=== PATIENT | male | born 1995 | race Caucasian/White ===

== ENCOUNTER 2017-05-18 18:56 | Emergency (ER) | payer OTHER ==
[2017-05-18 19:01] VITALS: BP 118/73; PULSE 102; RESP 18; TEMP 97.9; O2SAT 95
--- NOTE | 2017-05-18 19:12 | EDPHY ---
H & P Smoking Status: Never smoked Time Seen by Provider: 05/18/17 19:02 HPI/ROS: CHIEF COMPLAINT: Left thumb injury HISTORY OF PRESENT ILLNESS: 22-year-old male presents to the emergency department by private vehicle with injury to his left thumb. The patient was skiing and fell and thinks that he jammed his left thumb. Complains of isolated pain to the left thumb. He is right-hand dominant. He has pain in his left thumb especially with range of motion. Denies numbness or tingling in his fingers. Denies injury to the other fingers. He did not hit his head or lose consciousness. Denies neck or back pain. Denies chest pain or difficulty breathing. Denies abdominal pain, vomiting, diarrhea, injury to his lower extremities or his right upper extremity. His tetanus shot is current. REVIEW OF SYSTEMS: Constitutional: No fever, no chills. Eyes: No double or blurry vision. ENT: No sore throat. Respiratory: No cough, no shortness of breath. Cardiac: No chest pain. Gastrointestinal: No abdominal pain, vomiting or diarrhea. Genitourinary: No dysuria. Musculoskeletal: No neck or back pain. Skin: No rashes. Neurological: No headache. (Adilene Mcgill) Past Medical/Surgical History: Negative (Adilene Mcgill) Social History: Single (Adilene Mcgill) Physical Exam: General Appearance: Alert, no distress. No visible signs of trauma to his head. Mentating normally and answering questions appropriately. Eyes: Pupils equal and round. Extraocular motions are all intact. ENT: Mouth: Mucous membranes moist. No dental injury or malocclusion. Respiratory: No wheezing, rhonchi, or rales, lungs are clear to auscultation. Cardiovascular: Regular rate and rhythm. Gastrointestinal: Abdomen is soft and nontender, no masses, no rebound or guarding, bowel sounds normal. Neurological: Alert and oriented x 3, cranial nerves II through XII grossly intact Skin: There is blood noted the very distal tip of the thumb near where the nail meets with the distal pad of the finger. There is no evidence of subungual hematoma. Warm and dry, no rashes. Musculoskeletal: Nontender to palpate along the cervical, thoracic or lumbar spine. Neck is supple. Extremities: Left thumb is swollen. There is ecchymosis noted over the PIP on the palmar aspect of the left thumb. Reproducible pain with palpation of the PIP and the MCP joint of the left thumb. No rotational deformities noted. Limited flexion at the PIP joint and limited abduction secondary to pain. The other fingers do not appear injured and are nontender to palpate. Normal sensation to light touch with normal 2 point discrimination. Strong radial pulse at the left wrist. Psychiatric: Patient is oriented X 3, there is no agitation. (Adilene Mcgill) Constitutional: Initial Vital Signs Temperature (C) 36.6 C 05/18/17 18:58 Heart Rate 102 H 05/18/17 18:58 Respiratory Rate 18 05/18/17 18:58 Blood Pressure 118/73 05/18/17 18:58 O2 Sat (%) 95 05/18/17 18:58 O2 Delivery Mode Room Air Allergies/Adverse Reactions: No Known Allergies Allergy (Unverified 05/18/17 18:58) Home Medications: Medication Instructions Recorded Albuterol 05/18/17 Medical Decision Making - Diagnostics Imaging: I viewed and interpreted images myself Procedures: The patient was placed in Alumafoam thumb splint and Ortho Glass thumb spica splint and examined post application in good placement with normal [employer]. (Adilene Mcgill) ED Course/Re-evaluation: 22-year-old male presents to the emergency department with left thumb injury. X- rays are pending. X-rays of the left thumb reveal comminuted fracture to the base of the distal phalanx of the left thumb which is intra-articular. The patient will be placed in Alumafoam splint and Ortho Glass thumb spica splint and given orthopedic hand surgical referral. He understands that he could possibly require surgical repair. (Adilene Mcgill) Differential Diagnosis: Including but not limited to fracture, dislocation, contusion, sprain (Adilene Mcgill) Departure - Departure Disposition: Home, Routine, Self-Care Clinical Impression: Fracture of thumb, left, closed Condition: Good Instructions: Thumb Fracture (ED) Additional Instructions: Keep splint on and keep it dry. Ice and elevate to help reduce swelling. Ibuprofen 600 mg every 8 hr as needed for pain. Referrals: Elmira Jones MD [Medical Doctor] - 2-3 days without fail (Orthopedic hand surgeon on-call)
== END 2017-05-18 20:23 | disposition home or self-care (01) ==
DX: S62.522A Displaced fracture of distal phalanx of left thumb, initial encounter for closed fracture (principal); V00.321A Fall from snow-skis, initial encounter; Y99.8 Other external cause status; Y93.23 Activity, snow (alpine) (downhill) skiing, snowboarding, sledding, tobogganing and snow tubing

== ENCOUNTER 2018-07-19 09:18 | Emergency (ER) | payer OTHER ==
[2018-07-19 09:28] VITALS: BP 117/80
--- NOTE | 2018-07-19 09:35 | EDPHY ---
H & P Stated Complaint: sore throat x three days Time Seen by Provider: 07/19/18 09:30 HPI/ROS: HPI: This is a 23-year-old male who presents with Chief Complaint: Sore throat x3 days Location: Throat Quality: Pain, white spots Duration: 3 days Signs and Symptoms: +9 fever, no nausea, no vomiting, no diarrhea, no urinary symptoms, no chest pain, no shortness of breath, no wheezing, no cough, + sore throat, no neck stiffness, no joint pain, no swollen glands, no ear pain, no rash Timing: Acute Severity: Moderate Context: Patient is student at [employer] presents with 3 day history of sore throat accompanied by white spots on the back of his tonsils , swollen glands, no cough, fever with a T-max of a 101 F taken orally. Patient denies any neck stiffness, vomiting, nausea, headache, difficulty swallowing. He does report discomfort with eating and swallowing food. Taking ibuprofen for fever control and pain relief. Denies any drooling, difficulty talking. Patient reports that he has no abdominal pain, no fatigue, no generalized weakness. Drinking fluids without any difficulty. Modifying Factors: Ibuprofen taken 2 hr prior to arrival. Comment: ROS: A comprehensive 10 system review of systems is otherwise negative aside from elements mentioned in the history of present illness. MEDICAL/SURGICAL/SOCIAL HISTORY: Medical history: Generally healthy. Does not take any regular medications. Surgical history: Denies Social history: Marijuana user. Nontobacco user. Originally from [place]. Family history noncontributory. CONSTITUTIONAL: Well-developed, well-nourished, young adult white male, polite and cooperative, awake and alert, no obvious distress HEENT: Atraumatic and normocephalic, PERRL, EOMI. Nares patent; no rhinorrhea; no nasal mucosal edema. Tympanic membranes clear. Oropharynx clear, tonsils 2 + with moderate erythema and white exudate; uvula midline; and moist pink mucosa. Airway patent. + spotty anterior cervical lymphadenopathy. No meningismus. Cardiovascular: Normal S1/S2, regular rate, regular rhythm, without murmur rub or gallop. PULMONARY/CHEST: Symmetrical and nontender. Clear to auscultation bilaterally. Good air movement. No accessory muscle usage. ABDOMEN: Soft, nondistended, nontender, no rebound, no guarding, no peritoneal signs, no masses or organomegaly. No CVAT. EXTREMITIES: 2/2 pulses, strength 5/5, no deformities, no clubbing, no cyanosis or edema. NEUROLOGICAL: no focal neuro deficits. GCS 15. Speech clear. SKIN: Warm and dry, no erythema. no rash. Good capillary refill. Source: Patient Exam Limitations: No limitations - Personal History Tetanus Vaccine Date: < 10 years - Medical/Surgical History Hx Asthma: Yes Hx Chronic Respiratory Disease: No Hx Diabetes: No Hx Cardiac Disease: No Hx Renal Disease: No Hx Cirrhosis: No Hx Alcoholism: No Hx HIV/AIDS: No Hx Splenectomy or Spleen Trauma: No Other PMH: asthma. concussions. left thumb sx - Social History Smoking Status: Never smoked Constitutional: Initial Vital Signs Temperature (C) 36.6 C 07/19/18 09:25 Heart Rate 100 07/19/18 09:25 Respiratory Rate 15 07/19/18 09:25 Blood Pressure 117/80 07/19/18 09:25 O2 Sat (%) 96 07/19/18 09:25 O2 Delivery Mode Room Air Allergies/Adverse Reactions: peanut Allergy (Verified 07/19/18 09:28) shellfish derived Allergy (Verified 07/19/18 09:29) Home Medications: Medication Instructions Recorded Albuterol 05/18/17 Cefuroxime Axetil [Ceftin (*)] 250 mg PO BID 10 Days tab 07/19/18 Dexamethasone [Decadron 2 MG (*)] 10 mg PO ONCE #5 tab 07/19/18 Medical Decision Making ED Course/Re-evaluation: Vital signs reviewed and stable upon arrival. No systemic signs. Rapid Strep negative. Sent for throat culture. Modified Centor score=4; will prophylactically treat for strep pharyngitis with antibiotics. 1. Age Range: 15-44 years +1 3. Tender/swollen anterior cervical lymph nodes:+1 4. Temp greater than 30 degree C: +1 5. Cough: Absent=1 No signs of meningitis, abdominal pain, dehydration, tonsillar abscess, airway compromise Given a prescription for Ceftin times 10 days and Decadron 10 mg x1 This patient was seen under the supervision of my secondary supervising physician. I evaluated care for this patient with attending. Differential Diagnosis: Differential diagnosis includes but is not limited to infectious mononucleosis, tonsillar abscess, strep pharyngitis, pharyngitis, upper respiratory infection, sinusitis, allergic rhinitis - Data Points Laboratory Results: 07/19/18 07/19/18 Unknown 09:34 Group A Strep Screen NEGATIVE (NEGATIVE) Group A Strep DNA Pending Departure - Departure Disposition: Home, Routine, Self-Care Clinical Impression: Strep tonsillitis Condition: Good Instructions: Strep Throat (ED) Additional Instructions: Rest as much as possible until you are feeling better. Consume a minimum of 8-10 glasses of water or electrolyte fluid replacement drinks that include Gatorade, Powerade, Pedialyte. Eat a bland diet for the next 48 hours and then slowly advance as tolerated. Take antibiotic as directed. Do not skip a dose. Complete entire 10 day course. Take Tylenol 650 mg every 4 hours and/or Ibuprofen 600 mg every 8 hours with food as needed for pain. Return to the ER immediately if you cannot swallow, have drooling, fevers, neck stiffness, cannot open your jaw, or any other symptoms that concern you. Referrals: GENEVIEVE REYES [Other] - As per Instructions Stand Alone Forms: School Excuse Prescriptions: Cefuroxime Axetil [Ceftin (*)] 250 mg PO BID 10 Days tab Dexamethasone [Decadron 2 MG (*)] 10 mg PO ONCE #5 tab
== END 2018-07-19 09:40 | disposition home or self-care (01) ==
DX: J03.00 Acute streptococcal tonsillitis, unspecified (principal)

== ENCOUNTER 2018-08-02 17:40 | Emergency (ER) | payer OTHER ==
--- NOTE | 2018-08-02 17:48 | EDPHY ---
H & P Time Seen by Provider: 08/02/18 17:48 - Personal History Tetanus Vaccine Date: < 10 years - Medical/Surgical History Hx Asthma: Yes Hx Chronic Respiratory Disease: No Hx Diabetes: No Hx Cardiac Disease: No Hx Renal Disease: No Hx Cirrhosis: No Hx Alcoholism: No Hx HIV/AIDS: No Hx Splenectomy or Spleen Trauma: No Other PMH: asthma. concussions. left thumb sx - Social History Smoking Status: Never smoked Constitutional: Initial Vital Signs Temperature (C) 36.8 C 08/02/18 17:47 Heart Rate 107 H 08/02/18 17:47 Respiratory Rate 16 08/02/18 17:47 Blood Pressure 135/85 H 08/02/18 17:47 O2 Sat (%) 96 08/02/18 17:47 O2 Delivery Mode Room Air Allergies/Adverse Reactions: peanut Allergy (Verified 07/19/18 09:28) shellfish derived Allergy (Verified 07/19/18 09:29) Home Medications: Medication Instructions Recorded Albuterol 05/18/17 Cephalexin [Keflex (RX)] 500 mg PO TID #30 cap 08/02/18 Medical Decision Making ED Course/Re-evaluation: CHIEF COMPLAINT: Sore throat, body aches HISTORY OF PRESENT ILLNESS: The patient is a 23 y/o male who was recently diagnosed with strep throat complaining of a worsening sore throat, body aches, and a fever today. The patient was diagnosed with strep 2 weeks ago and placed on Ceftin. He took the full dose of antibiotics and his symptoms improved. Starting , yesterday , he developed a sore throat again. No headache, lightheadedness, chest pain, heart palpitations, shortness of breath, cough, abdominal pain, urinary or bowel complaints, numbness, paresthesias. REVIEW OF SYSTEMS: A comprehensive 10 system review of systems is otherwise negative aside from elements mentioned in the history of present illness and medical decision making. PHYSICAL EXAM: HR, BP, O2 Sat, RR. Temp noted General Appearance: Alert, well hydrated, appropriate, and non-toxic appearing. Head: Atraumatic without scalp tenderness or obvious injury Eyes: Pupils equal, round, reactive to light and accommodation, EOMI, no trauma , no injection. Ears: Clear bilaterally, no perforation, normal landmarks Nose: Atraumatic, no rhinorrhea, clear. Throat: Bilateral tonsillar exudates with oropharyngeal erythema. No lesions and mucus membranes moist. Neck: Submandibular lymphadenopathy. Supple, 2+ carotid upstroke, nontender. Respiratory: No retractions, no distress, no wheezes, and no accessory muscle use. Lungs are clear to auscultation bilaterally. Cardiovascular: Regular rate and rhythm, no murmurs, rubs, or gallops. Bilateral carotid, radial, dorsalis pedis, and posterior tibial pulses intact. Good capillary refill all extremities. Gastrointestinal: Abdomen is soft, nontender, non-distended, no masses, no rebound, no guarding, no peritoneal signs. Musculoskeletal: Normal active ROM of all extremities, atraumatic. Neurological: Alert, appropriate, and interactive. The patient has normal DTRs and non-focal cranial nerves, motor, sensory, and cerebellar exam. Skin: No rashes, good turgor, no nodules on palpation. Past medical history: Asthma, concussions Past surgical history: Left thumb surgery Family history: Denies Social history: Student at , single, lives in [place] DIAGNOSTICS/PROCEDURES/CRITICAL CARE TIME: Not indicated. DIFFERENTIAL DIAGNOSIS: The differential diagnosis for the patient's sore throat and fever included but was not limited to pharyngitis, tonsillar abscess, pneumonia, urinary tract infection, viral syndrome, meningitis, and sepsis. MEDICAL DECISION MAKING: The patient is a 23 y/o male who was recently diagnosed with strep throat presenting with a worsening sore throat, body aches, and a fever today. The patient was diagnosed with strep 2 weeks ago and placed on Ceftin, which he took as prescribed. On exam she has bilateral tonsillar exudates with oropharyngeal erythema. He also has bilateral submandibular lymphadenopathy. 6mg PO Decadron and 500mg PO Keflex administered for patient's pharyngitis. Patient will also be given a course of Keflex. Return precautions provided; patient is comfortable with this plan. - Data Points Medications Given: Discontinued Medications Cephalexin HCl (Keflex) 500 mg PO EDNOW ONE PRN Reason: Protocol Stop: 08/02/18 17:55 Last Admin: 08/02/18 18:06 Dose: 500 mg Dexamethasone (Decadron Injection) 6 mg PO EDNOW ONE Stop: 08/02/18 17:55 Last Admin: 08/02/18 18:08 Dose: 6 mg Departure - Departure Disposition: Home, Routine, Self-Care Clinical Impression: Tonsillar exudate Pharyngitis Qualifiers: Pharyngitis/tonsillitis etiology: other specified organisms Qualified Code(s): J02.8 - Acute pharyngitis due to other specified organisms Condition: Good Instructions: Pharyngitis (ED) Additional Instructions: 1. Take Keflex as prescribed. 2. Follow up with ENT within the next week. 3. Follow-up with your primary doctor within 72 hours. 4. Return to the Emergency Department for fever, chest pain, shortness of breath , increasing pain or other worsening of condition. Referrals: [facility] ,. [Clinic] - As per Instructions Darren Lee MD [Medical Doctor] - As per Instructions Prescriptions: Cephalexin [Keflex (RX)] 500 mg PO TID #30 cap Report Scribed for: Enrique Headley Report Scribed by: Sadaf Bell Date of Report: 08/02/18 Time of Report: 18:43
[2018-08-02 17:50] VITALS: BP 135/85
[2018-08-02] MEDS ORDERED: DEXAMETHASONE 10 MG/ML VIAL PO ONE (17:54)
[2018-08-02] MEDS ORDERED: CEPHALEXIN 500 MG CAP PO ONE (17:54)
== END 2018-08-02 18:13 | disposition home or self-care (01) ==
DX: J02.9 Acute pharyngitis, unspecified (principal)
CPT/HCPCS: J1100